=== PATIENT | male | born 1970 | race African-American/Black ===

== ENCOUNTER 2022-05-28 19:19 | Emergency (ER) | payer OTHER ==
[~2022-05-28] VITALS: Ht 185.4 cm; Wt 77.1 kg
--- NOTE | 2022-05-28 19:50 | NUR ---
PRESETNTED TO THE ER FOR C.O ABD PAIN AND HENATURIA TODAY, -N/V/D. AMBULATORY WITH STEADY GAITS FROM [facility]. URINE SAMPLE OBTAINED. TO BED 15 ER. WILL CONT TO MONITOR
--- NOTE | 2022-05-28 19:59 | NUR ---
TAKEN TO CT
[2022-05-28 20:24] LABS: BILIRUBIN,URINE NEGATIVE (NEGATIVE); COLOR,URINE YELLOW (YELLOW); LEUKOCYTE ESTERASE ,URINE TRACE (NEGATIVE); NITRITE, URINE NEGATIVE (NEGATIVE); PH,URINE 5.5 (5.0-8.0); PROTEIN,URINE NEGATIVE (NEGATIVE); UGLUCOSE NEGATIVE (NEGATIVE); UROBILINOGEN,URINE 0.2 EU/dL (0.2)
[2022-05-28 20:28] LABS: BACTERIA,URINE Rare /HPF (None Seen); RBC,URINE 0-2 /HPF (0-2); SQUAMOUS EPITHELIAL CELL,UR Few /HPF (None Seen)
--- NOTE | 2022-05-28 20:31 | NUR ---
LAC #18G S/L BLOOD COLLECTED AND SENT TO LAB
[2022-05-28 21:00] LABS: BASOPHILS % (AUTO) 0.2 % (0.0-2.0); EOSINOPHILS % (AUTO) 4.1 % (0.0-6.0); HEMATOCRIT 41 % (39-51); HEMOGLOBIN 13.5 g/dL (13.5-17.5); LYMPHOCYTES # (AUTO) 1.7 K/uL (0.8-4.8); LYMPHOCYTES % (AUTO) 38.1 % (20.0-44.0); MEAN CORPUSCULAR HGB CONC 33 g/dl (31.0-36.0); MEAN CORPUSCULAR VOLUME 92 fL (80-96); MONOCYTES # (AUTO) 0.4 K/uL (0.1-1.30); MONOCYTES % (AUTO) 9.1 % (2.0-12.0); NEUTROPHILS # (AUTO) 2.2 K/uL (1.8-8.9); NEUTROPHILS % (AUTO) 48.5 % (43.0-81.0); PLATELET COUNT (AUTO) 156 K/uL (150-450); RED BLOOD CELL COUNT(AUTO) 4.44 MIL/uL (4.5-6.0); WHITE BLOOD COUNT (AUTO) 4.5 K/uL (4.3-11.0)
[2022-05-28] MEDS ORDERED: NITROFURANTOIN/MONOHYDRATE MACROCRYSTALS 100 MG CAPSULE PO ONE (21:00)
[2022-05-28] MEDS ORDERED: CIPROFLOXACIN HCL 250 MG TABLET PO ONE (21:00)
[2022-05-28 21:08] LABS: CALCIUM, SERUM 8.3 mg/dL (8.5-10.1); CREATININE 0.9 mg/dL (0.6-1.3); POTASSIUM 4.3 mmol/L (3.5-5.1)
[2022-05-28 21:14] LABS: ALBUMIN 3.1 g/dL (3.4-5.0); BILIRUBIN,DIRECT 0.1 mg/dL (0.0-0.2); BILIRUBIN,TOTAL 0.2 mg/dL (0.2-1.0)
[2022-05-28] MEDS ORDERED: CIPROFLOXACIN HCL 500 MG TABLET ONE (21:14)
[2022-05-28] MEDS ORDERED: CIPR500T5 PO (21:15)
--- NOTE | 2022-05-28 21:28 | NUR ---
FACESHEET AND CLINICALS FAXED TO [facility].
--- NOTE | 2022-05-29 02:43 | NUR ---
COVID ANTIGEN SWAB COLLECTED AND SENT TO LAB
--- NOTE | 2022-05-29 08:15 | NUR ---
CALLED [facility], LEFT A VOICEMAIL. AWAITING CALL BACK.
--- NOTE | 2022-05-29 09:00 | NUR ---
Spoke to [facility] [place] [facility] Pt accepted to facility ( was admitted there)
[2022-05-29 11:11] VITALS: BP 119/70
--- NOTE | 2022-05-29 12:37 | NUR ---
[facility]S TRANSPORT BACK TO [facility] ETA 60 MINS.
== END 2022-05-29 14:28 ==
LOC: ER 19:33
DX: K52.9 Noninfective gastroenteritis and colitis, unspecified (principal); N39.0 Urinary tract infection, site not specified; Z20.822 Contact with and (suspected) exposure to COVID-19; Z86.59 Personal history of other mental and behavioral disorders
CPT/HCPCS: 99284; 74176; 85025; 80048; 87086; 83690; 80076; 81001; 36415; 87426; C9803